=== PATIENT | female | born 1980 | race African-American/Black ===

== ENCOUNTER 2023-01-16 04:23 | Day surgery (SDC) | payer OTHER ==
[2023-01-13 10:35] VITALS: BMI 31.1
[2023-01-16 09:34] VITALS: RESP 18
[2023-01-16] MEDS ORDERED: IOHEXOL 180 MG/1 ML ML IJ ONE ×2 (11:49→12:33)
[2023-01-16] MEDS ORDERED: DEXAMETHASONE SOD PHOSPHATE 10 MG/1 ML VIAL IVPUSH ONE ×2 (11:50→12:33)
[2023-01-16] MEDS ORDERED: BUPIVACAINE HCL/PF 0.5% (5MG/ML) 10 ML VIAL IJ ONE (11:50)
[2023-01-16] MEDS ORDERED: LIDOCAINE 1% P/F 10 MG/ML VIAL PNB ONE ×2 (11:50→12:34)
[2023-01-16] MEDS ORDERED: MIDAZOLAM HCL 2 MG/2 ML SINGLE DOSE VIAL ONE (12:21)
[2023-01-16] MEDS ORDERED: BUPIVACAINE HCL/PF 0.25% (2.5MG/ML) 10 ML VIAL IJ ONE (12:34)
[2023-01-16 13:40] VITALS: BP 137/84; PULSE 58; TEMP 97.3
== END 2023-01-16 13:43 | disposition home or self-care (01) ==
LOC: JASU-SURG 04:23
PROVIDERS: ATTEND Physical Medicine & Rehabilitation
PROC: 3E0R3BZ Introduction of Anesthetic Agent into Spinal Canal, Percutaneous Approach (ICD-10-PCS; 2023-01-16)
PROC: 3E0R33Z Introduction of Anti-inflammatory into Spinal Canal, Percutaneous Approach (ICD-10-PCS; principal; 2023-01-16 10:30)
DX: M54.16 Radiculopathy, lumbar region (principal)
CPT/HCPCS: 76000-TC-FY; 81025; J1100